=== PATIENT | male | born 1995 | race Caucasian/White ===

== ENCOUNTER 2018-08-19 04:11 | Emergency (ER) | payer OTHER ==
--- NOTE | 2018-08-19 04:29 | EDM.PDOC ---
ED HPI GENERAL MEDICAL PROBLEM - General Chief Complaint: ENT Problem Stated Complaint: SORE THROAT THAT IS BLEEDING Time Seen by Provider: 08/19/18 04:26 - History of Present Illness INITIAL COMMENTS - FREE TEXT/NARRATIVE: 23-year-old male presents to the emergency room with bleeding from the back of his throat. The patient has had a sore throat for the last for 5 days he was seen in the walk-in clinic yesterday had a swab that was negative for strep. CV and around 6 :00 at supper the patient felt something pop back there ever since that time it' s been losing a little bit of blood constantly. He could not get this to stop so he comes in this morning. Patient denies any lightheadedness or dizziness. Past medical history is unremarkable. Throat Pain Score (Numeric/FACES): 6 - Related Data Allergies Allergy/AdvReac Type Severity Reaction Status Date / Time No Known Allergies Allergy Verified 08/19/18 04:25 Home Meds: Home Meds Methylphenidate [Ritalin] 5 mg PO DAILY 08/19/18 [History] ED ROS ENT - Review of Systems Review Of Systems: See Below Constitutional: Reports: No Symptoms HEENT: Reports: Other (Other than the bleeding from the back of his throat is sore throat he is doing okay) Respiratory: Reports: No Symptoms Cardiovascular: Reports: No Symptoms GI/Abdominal: Reports: No Symptoms : Reports: No Symptoms Neurological: Reports: No Symptoms ED EXAM, ENT - Physical Exam Exam: See Below Exam Limited By: No Limitations General Appearance: Alert, No Apparent Distress, Other (He keeps spitting up this mucousy material that is blood-tinged) Mouth/Throat: Normal Gums, Normal Lips, Normal Teeth, Other (Just in front of the right tonsil he has a friable clot. He has some bleeding from behind here. The blood is not coming from the posterior aspect of the tonsil but the anterior aspect.) Head: Atraumatic, Normocephalic Neck: Normal Inspection, Supple, Non-Tender, Full Range of Motion Respiratory/Chest: No Respiratory Distress, Lungs Clear, Normal Breath Sounds Cardiovascular: Regular Rate, Rhythm, No Edema, No Murmur GI/Abdominal: Normal Bowel Sounds, Soft, Non-Tender Course - Vital Signs Last Recorded V/S: Last Vital Signs Temp 37.2 C 08/19/18 04:23 Pulse 72 08/19/18 04:23 Resp 16 08/19/18 04:23 BP 132/75 08/19/18 04:23 Pulse Ox 100 08/19/18 04:23 - Re-Assessments/Exams Free Text/Narrative Re-Assessment/Exam: 08/19/18 05:38 It had the patient gargle with ice water this seems to have slowed down somewhat but not completely gone. I discussed the situation with Dr. Metz on-call ear nose and throat at [facility] who would be happy to see him first thing in the morning in his clinic. I discussed this with the patient and his sister who can drive him there however she cannot leave here immediately. But we'll try and get on the road as soon as they can. Departure - Departure Time of Disposition: 05:47 Disposition: Home, Self-Care 01 Clinical Impression: Tonsillar bleed - Discharge Information Referrals: PCP,None [Primary Care Provider] - Forms: ED Department Discharge Additional Instructions: Return to the emergency room with any questions problems worsening symptoms. Follow-up with Dr. Metz at the [facility] clinic as soon as he can this morning. Continue the ice water gargles to help control the bleeding
== END 2018-08-19 05:52 | disposition home or self-care (01) ==
LOC: JD.ED 04:11
DX: J35.8 Other chronic diseases of tonsils and adenoids (principal); Z79.899 Other long term (current) drug therapy
CPT/HCPCS: 99282